=== PATIENT | female | born 1965 | race Caucasian/White ===

== ENCOUNTER → 2018-09-29 | Day surgery (SDC) | payer BC ==
[~2018-09-29] MED LIST: ALPR1TAB6 PO; IV RINGERS,LACTATED 1000ML 1,000 ML IV SCH; LIDOCAINE 1% PF 2 ML VIAL. ID PRN; LIDOCAINE 1% PF 2 ML VIAL. ONE; MECL12.52 PO; MIDAZOLAM HCL/PF 2 MG/2 ML VIAL. IV PRN; PANT20TA2 PO; PROPOFOL 40 ML IV ONE; fentaNYL PF VIAL 100 MCG/2 ML VIAL IV PRN
[2018-09-29 14:42] VITALS: BP 117/63
--- NOTE | 2018-10-03 09:06 | PATHOLOGY ---
[facility] Accession Number: [id number] . 01 Material submitted: . PART A: DISTAL ESOPHAGEAL BIOPSY PART B: RANDOM COLON BIOPSY . 01 Clinical history: . GERD, Crohn's . 02 Diagnosis: A. Esophageal biopsies, distal esophagus: - Segments of hyperplastic squamous esophageal mucosa consistent with reflux esophagitis. . B. Colonic mucosa, random colon biopsies: - No significant pathologic abnormalities. . (JPM:mml; 09/30/2018) QLM/09/30/2018 . 02 Comment: Sections of the distal esophageal biopsy reveal segments of tangentially-oriented, hyperplastic squamous esophageal mucosa. There are focal intraepithelial neutrophils. The findings are consistent with reflux esophagitis. There is no evidence of Varner's change, dysplasia, or malignancy. Sections of random colon biopsy reveal multiple segments of colonic mucosa containing a few small mucosa-associated lymphoid aggregates. There is no evidence of a chronic destructive colitis, lymphocytic colitis, or collagenous colitis. . (JPM:mml; 09/30/2018) . 02 Electronically signed: . Melvin Berumen MD, Pathologist NPI- [id number] . 01 Gross description: . A. Received in formalin labeled "Ricarda Santillan, distal esophagus BX," are 4 segments of chan soft tissue measuring 1.0 x 0.5 x 0.1 cm in aggregate dimensions and ranging from 0.4 to 0.5 cm in maximum dimension. The specimen is submitted entirely in cassette A1. . B. Received in formalin labeled "Awais Santillanna, random colon BX," are multiple segments of chan soft tissue measuring 1.6 x 0.4 x 0.1 cm in aggregate dimensions. The specimen is filtered and entirely submitted in cassette B1. (TSD; 09/29/2018) TOB/TOB . 02 Pathologist provided ICD-10: K21.0, K21.9 . 02 CPT . 743729, 434267 Specimen Comment: A courtesy copy of this report has been sent to Specimen Comment: [phone], . Specimen Comment: Report sent to / DR BORJA Performed at: [address] [facility], [place] [id number] MD Patel Cali MD Phone: [phone] Performed at: 02 [facility] [address], [place] [id number] MD Melvin Berumen MD Phone: [phone]
== END | disposition home or self-care (01) ==
LOC: ENDOS 12:55
PROVIDERS: ATTEND Internal Medicine Gastroenterology
DX: K21.0 Gastro-esophageal reflux disease with esophagitis (principal); K64.0 First degree hemorrhoids; R19.4 Change in bowel habit; Z88.5 Allergy status to narcotic agent; F41.9 Anxiety disorder, unspecified; F32.9 Major depressive disorder, single episode, unspecified; Z82.49 Family history of ischemic heart disease and other diseases of the circulatory system; Z82.3 Family history of stroke; Z79.899 Other long term (current) drug therapy; Z90.49 Acquired absence of other specified parts of digestive tract; Z90.710 Acquired absence of both cervix and uterus
CPT/HCPCS: 43239; 45380; J2704; 88305